=== PATIENT | female | born 1980 | race Caucasian/White ===

== ENCOUNTER 2025-02-13 19:41 | Emergency (ER) | payer MEDICAID, SELFPAY ==
[2025-02-13 19:41] VITALS: BMI 39.4
[2025-02-13 20:18] VITALS: BP 130/88; PULSE 81; RESP 19; TEMP 37.2; O2SAT 98
--- NOTE | 2025-02-13 22:19 | EDRME_ITS ---
Rapid Medical Screening Exam RME Arrival date/time: 02/13/25 19:41 Chief Complaint: Wound/Laceration Time Seen by Provider: 02/13/25 21:12 Vital signs: Vital Signs Temperature 98.9 F 02/13/25 20:18 Pulse Rate 81 02/13/25 20:18 Respiratory Rate 19 02/13/25 20:18 Blood Pressure 130/88 H 02/13/25 20:18 Pulse Oximetry (%) 98 02/13/25 20:18 Oxygen Delivery Method Room Air 02/13/25 20:18 Vital signs reviewed by provider: Yes RME Narrative: [id number] 44-year-old female presents to the ED with a complaint of right index finger laceration. 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 She reached onto the can lid to attempt to open the can the rest of the way and it caused a laceration to the right index finger. Her last tetanus was greater than 10 years ago. She denies any numbness or tingling distally. She denies any functional deficit.
[2025-02-13] MEDS: DIPHTH,PERTUSS(ACELL),TET VAC 0.5 ML SYR- ADULT IMi (22:47)
--- NOTE | 2025-02-13 23:31 | EDNOTE_ITS ---
ED Wound/Laceration-RME/HPI General Chief Complaint: Wound/Laceration Stated Complaint: CUT TO RIGHT INDEX FINGER Time Seen by Provider: 02/13/25 21:12 Arrival date/time: 02/13/25 19:41 RME / HPI RME / HPI narrative: [id number] 44-year-old female presents to the ED with a complaint of right index finger laceration. 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 She reached onto the can lid to attempt to open the can the rest of the way and it caused a laceration to the right index finger. Her last tetanus was greater than 10 years ago. She denies any numbness or tingling distally. She denies any functional deficit. Related Data Previous Rx's ?Medication ?Instructions ?Recorded tramadol 37.5 mg-acetaminophen 325 1 tab PO TID PRN pa in #15 tabs 09/21/ mg tablet (Ultracet) Allergies Allergy/AdvReac Type Severity Reaction Status Date / Time No Known Allergies Allergy Verified 02/13/25 19:41 ED Exam Narrative Physical exam: Right index finger with laceration noted to the distal phalanx. Does not include the nail or nailbed. CMS intact distally. No functional deficit noted. Course Course Course Narrative: Tdap updated. 1.5 cm laceration closed with number three 5-0 nylon simple interrupted sutures. With good wound edge approximation. Patient tolerated procedure well. Orders Category Date Time Status Set Up Suture Tray STAT Care 02/13/25 22:20 Active TDap [Obtain Tdap Consent] X1 Care 02/13/25 22:20 Active TET,DIP/PERT AC (Adult)-Tdap [Boostrix Adult (Tdap) Med 02/13/25 22:20 Discontinued Vacc] 0.5 ml IMI .ONCE ONE Vital Signs Vital signs: Vital Signs Temperature 98.9 F 02/13/25 20:18 Pulse Rate 81 02/13/25 20:18 Respiratory Rate 19 02/13/25 20:18 Blood Pressure 130/88 H 02/13/25 20:18 Pulse Oximetry (%) 98 02/13/25 20:18 Oxygen Delivery Method Room Air 02/13/25 20:18 Wound / Laceration Medications / Prescriptions Medication administrations:: Medication Administration History Discontinued Medications Diphtheria/Tetanus/Acell Pertussis (Diphth,Pertuss(Acell),Tet Vac 0.5 Ml Syr- Adult) 0.5 ml IMi .ONCE ONE Stop: 02/13/25 22:21 Last Admin: 02/13/25 22:47 Dose: 0.5 ml Documented By: ANITRA Discharge Plan Prescriptions/Referrals Prescriptions/Med Rec: No Action tramadol-acetaminophen [Ultracet] 37.5-325 mg tablet 1 tab PO TID PRN (Reason: pain) Qty: 15 0RF Referrals: Sherry Galindo NP [Primary Care Provider] - In 1 week Patient/Caregiver Discharge Instructions Print Language: Sierra Leonean
[2025-02-13 23:48] VITALS: BP 142/67; PULSE 78; RESP 19; TEMP 36.6; O2SAT 99
== END 2025-02-13 23:49 | disposition home or self-care (01) ==
PROVIDERS: Emergency Provider Emergency Medicine; PCP Nurse Practitioner Family
DX: S61.210A Laceration without foreign body of right index finger without damage to nail, initial encounter (principal); W45.8XXA Other foreign body or object entering through skin, initial encounter; Z23 Encounter for immunization
CPT/HCPCS: 12001; 90471; 90715; 99283

== ENCOUNTER 2025-02-21 09:43 | Emergency (ER) | payer MEDICAID, SELFPAY ==
[2025-02-21 09:59] VITALS: BP 153/96; PULSE 83; RESP 19; TEMP 36.7; O2SAT 98; BMI 39.4
--- NOTE | 2025-02-21 10:02 | XR_ITS ---
Examination: Abdomen sonogram, Limited Date and time of exam: 05/24/2025 1041 hours INDICATIONS: Right upper abdominal pain nausea vomiting beginning 5 hours ago Technique: Real-time coombs scale transabdominal sonographic images of the upper abdomen obtained. Findings: Normal gallbladder Normal common bile duct 0.4 cm Pancreatic head 1.6 cm Liver 18.2 cm fatty infiltration Normal hepatopedal portal venous flow Patent IVC IMPRESSION: Moderate hepatomegaly, fatty liver
--- NOTE | 2025-02-21 10:02 | PD.EDRME ---
Rapid Medical Screening Exam RME Arrival date/time: 02/21/25 09:43 44-year-old female with no known medical history presents to the emergency room with a chief complaint of 8 out of 10 epigastric pain that radiates to the right upper quadrant and vomiting x 1 day. I have greeted and performed a focused initial assessment of this patient. A comprehensive ED assessment and evaluation of the patient, analysis of all test results, and completion of the medical decision making process will be conducted by additional ED providers. Chief Complaint: Abdominal Pain Vital signs: Vital Signs Temperature 98.0 F 02/21/25 09:59 Pulse Rate 83 02/21/25 09:59 Respiratory Rate 19 02/21/25 09:59 Blood Pressure 153/96 H 02/21/25 09:59 Pulse Oximetry (%) 98 02/21/25 09:59 Oxygen Delivery Method Room Air 02/21/25 09:59 Vital signs reviewed by provider: Yes
[2025-02-21] MEDS: HYDROcodone/APAP 5/325 TABLET 1 TAB PO (11:10)
[2025-02-21] MEDS: ONDANSETRON ODT 4 MG TABRAP PO (11:10)
[2025-02-21] MEDS: MG HYD/AL HYD/SIME (Maalox Reg) SUSP 30 ML UDC PO (11:10)
[2025-02-21 11:36] LABS: Basophils % (Auto) 0 % (0-2.5); Eosinophils # (Auto) 0.3 Thou/mm3 (0.0-0.5); Eosinophils % (Auto) 4 % (0-10); Hematocrit 41.5 % (36.0-46.0); Hemoglobin 13.9 g/dL (12.0-16.0); Immature Granulocytes % (Auto) 0 % (0-0); Immature Granulocytes Auto 0.03 Thou/mm3 (0.00-0.00); Lymphocytes # (Auto) 1.5 Thou/mm3 (1.0-4.8); Lymphocytes % (Auto) 18 % (10-50); Mean Corpuscular HGB Conc 33.5 g/dl (31.0-37.0); Mean Corpuscular Hemoglobin 32.3 pg (25.0-35.0); Mean Corpuscular Volume 96 fL (80-100); Monocytes # (Auto) 0.5 Thou/mm3 (0.0-0.8); Monocytes % (Auto) 6 % (0-12); Neutrophils % (Auto) 72 % (37-80); Nucleated Red Blood Cell % 0 /100 WBC (0); Platelet Count 212 Thou/mm3 (140-440); RDW Standard Deviation 45.2 fL (36.4-46.3); Red Blood Count 4.31 Miln/mm3 (4.00-5.20); White Blood Count 8.3 Thou/mm3 (3.6-11.0)
[2025-02-21 11:37] LABS: Alanine Aminotransferase 69 U/L (10-49); Albumin, Serum 4.8 gm/dL (3.5-5.0); Albumin/Globulin Ratio 1.7 (1.2-2.2); Alkaline Phosphatase 81 U/L (46-116); Anion Gap 5 (7-16); Aspartate Amino Transferase 51 U/L (0-34); BUN/Creatinine Ratio 8 Ratio (12-20); Bilirubin,Total 0.5 mg/dL (0.3-1.2); Blood Urea Nitrogen 7 mg/dL (9-23); Calcium 9.6 mg/dL (8.3-10.6); Calcium (Corrected) 9.6 mg/dL (8.5-10.1); Carbon Dioxide 27.3 mMol/L (20.0-31.0); Chloride 107 mMol/L (98-107); Creatinine (Component) 0.9 mg/dL (0.6-1.3); Estimated Creatinine Clearance 95.8 mL/min (>60); Globulin 2.8 gm/dL (2.3-3.5); Glucose 122 mg/dL (74-106); Lipase 46 U/L (12-53); Osmolality,Calculated 276 (275-295); Sodium 139 mMol/L (136-145); Total Protein 7.6 gm/dL (5.7-8.2); eGFR > 60 See Note
[2025-02-21 11:44] LABS: Collection Type, Urine Clean Catch
[2025-02-21 12:43] LABS: HCG Qualitative,Urine Negative
[2025-02-21 12:51] LABS: Amorphous Crystals,Urine Present (Absent); Bacteria,Urine Rare; Bilirubin,Urine Negative (Negative); Blood,Urine 1+ (Negative); Calcium Oxalate Crystals,Urine 3+; Color,Urine Yellow (Lt Yel-Yel); Glucose, Urine Negative (Negative); Ketones,Urine Negative (Negative); Leukocyte Esterase,Urine Positive (Negative); Nitrite,Urine Negative (Negative); Protein,Urine 1+ (Neg - Trace); RBC,Urine 4 /hpf (0-3); Specific Gravity,Urine 1.031 (1.001-1.035); Squamous Epithelial Cell,Urine 7 /hpf (0-5); Urobilinogen,Urine Negative mg/dL (0.0-1.0); WBC,Urine 36 /hpf (0-5)
[2025-02-21 13:11] LABS: Clarity,Urine Turbid (Clear/Hazy)
--- NOTE | 2025-02-21 15:10 | XR_ITS ---
Examination: CT abdomen and pelvis without contrast. Coronal 3-D reconstructions. Sagittal 2-D reconstructions. Date and time of exam:February 21, 2025 1659 hours INDICATIONS: Abdominal pain with nausea today CTDI: vol (mGy): 14.9 DLP: (mGycm): 844 Technique: Axial images of the abdomen have been obtained, 3 mm slice thickness Intravenous contrast material has not been administered. Low dose protocols were performed. One or more of the following dose reduction techniques were used; automated exposure control, adjustment of the mA and/or KV according to patient size, use of iterative reconstruction technique. Findings: No gallstones Spleen not enlarged No pancreatic or adrenal mass 1 mm right renal calculus coronal image 102 Normal appendix No bowel obstruction No diverticulitis No pelvic mass Intact urinary bladder Advanced degenerative disc disease L5-S1 IMPRESSION: Normal appendix 1 mm right renal calculus, no hydronephrosis No bowel obstruction
--- NOTE | 2025-02-21 15:28 | PD.EDABDPN ---
ED Abdominal Pain RME/HPI General Chief Complaint: Abdominal Pain Stated complaint: SEVERE UPPER STOMACH PAIN & CHEST PAIN SINCE 5AM Arrival date/time: 02/21/25 09:43 Limitations: no limitations RME / HPI RME / HPI narrative: 02/21/25 09:43 44-year-old female with no known medical history presents to the emergency room with a chief complaint of 8 out of 10 epigastric pain that radiates to the right upper quadrant and vomiting x 1 day. I have greeted and performed a focused initial assessment of this patient. A comprehensive ED assessment and evaluation of the patient, analysis of all test results, and completion of the medical decision making process will be conducted by additional ED providers. DR. CARLOS MAIN ED EVALUATION: 44 year old female with no known past medical history presents to the Emergency Department with complaint of epigastric pain that radiates up. No other symptoms reported at this time. She states she smokes and drinks alcohol. Related Data Previous Rx's ?Medication ?Instructions ?Recorded tramadol 37.5 mg-acetaminophen 325 1 tab PO TID PRN pain #15 tabs 09/21/22 mg tablet (Ultracet) Allergies Allergy/AdvReac Type Severity Reaction Status Date / Time No Known Allergies Allergy Verified 02/21/25 09:46 Review of Systems Review of Systems Systems Reviewed: All systems reviewed, normal except as documented Narrative Review of Systems: GEN: No fever, no chills, no weight loss EYES: No discharge, no visual changes, no pain HEENT: No ear pain, no congestion, no sore throat PULM: No shortness of breath, no cough, no congestion CV: No chest pain, no dyspnea on exertion, no palpitations GI: No nausea, no vomiting, no diarrhea, + epigastric pain, no constipation : No frequency, no urgency and no dysuria MUSC/SKEL: No joint pain, no back pain SKIN: No rash PSYCH: No hallucinations, no depression HEME/LYMPH: No easy bleeding or bruising tendencies NEURO: No weakness, no headache Past Medical History Social History SMOKING STATUS: Former smoker SUBSTANCE USE: does not use ALCOHOL: Never ED Exam General Limitations: Present no limitations General appearance: Present alert and in no apparent distress Head Head exam: Present atraumatic, normocephalic and normal inspection Eye Eye exam: Present normal appearance, PERRL and EOMI ENT ENT exam: Present normal exam, normal oropharynx and mucous membranes moist Neck Neck exam: Present normal inspection, full ROM and trachea midline Chest Chest inspection: Present normal inspection and symmetric chest wall rise Respiratory Respiratory exam: Present normal lung sounds bilaterally Cardiovascular Cardiovascular exam: Present regular rate, normal rhythm and normal heart sounds Abdominal Exam Abdominal exam: Present soft and normal bowel sounds Extremities Exam Extremities exam: Present normal inspection and full ROM Back Exam Back exam: Present normal inspection and full ROM Neurological Exam Neurological exam: Present alert, oriented X3 and CN II-XII intact Psychiatric Psychiatric exam: Present normal affect and normal mood Skin Skin exam: Present warm, dry, intact and normal color Course Quality Measures none Orders Category Date Time Status CT abdomen pelvis wo con Stat Exams 02/21/25 15:10 Completed US gall bladder Stat Exams 02/21/25 10:02 Completed CBC Stat Lab 02/21/25 11:04 Completed CMP [Comprehensive Metabolic Panel] Stat Lab 02/21/25 11:04 Completed HCG Qualitative,Urine Stat Lab 02/21/25 11:00 Completed Lipase Stat Lab 02/21/25 11:04 Completed UA [Urinalysis] Stat Lab 02/21/25 11:00 Completed Urine Culture Stat Lab 02/21/25 11:00 Received HYDROcodone*/APAP 5/325 [[place] 5/325] Med 02/21/25 10:02 Discontinued 1 tab PO X1 ONE Ondansetron Odt [Zofran Odt] Med 02/21/25 10:02 Discontinued 4 mg PO X1 ONE mg Hyd/Al Hyd/Isaura Susp [Maalox Susp] Med 02/21/25 10:02 Discontinued 30 ml PO X1 ONE Vital Signs Vital signs: Vital Signs Temperature 98.0 F 02/21/25 09:59 Pulse Rate 83 02/21/25 09:59 Respiratory Rate 19 02/21/25 09:59 Blood Pressure 153/96 H 02/21/25 09:59 Pulse Oximetry (%) 98 02/21/25 09:59 Oxygen Delivery Method Room Air 02/21/25 09:59 Abdominal Pain MDM MDM Narrative MDM Narrative:: I, Mandy Duncan am scribing for and in the presence of Dr. Carlos. Patient will be discharged with acid reflux, she refused medications. Patient data External records reviewed:: [facility] previous records (Reviewed last ED visit dated 02/13/25 discharged with the following: Laceration) Clinical information provided by:: patient Social determinants that could affect healthcare access:: alcohol use (She states she smokes and drinks alcohol.) Patient has the following chronic illnesses:: No known PMHx, surgeries, daily medications, or known allergies. How is presenting disease/condition affected by chronic disease/condition?: no chronic disease Evaluation data The following diagnostics were reviewed and interpreted by me:: lab results and radiology exam(s) Lab and/or radiology exams considered but not ordered:: none Interpretation Summary: Procedure(s): US gall bladder Accession Number(s): [id number] cc: Los Oconnell; Irineo oJnes MD; Yonathan Paulino MD~ Examination: Abdomen sonogram, Limited Date and time of exam: 05/24/2025 1041 hours INDICATIONS: Right upper abdominal pain nausea vomiting beginning 5 hours ago Technique: Real-time coombs scale transabdominal sonographic images of the upper abdomen obtained. Findings: Normal gallbladder Normal common bile duct 0.4 cm Pancreatic head 1.6 cm Liver 18.2 cm fatty infiltration Normal hepatopedal portal venous flow Patent IVC IMPRESSION: Moderate hepatomegaly, fatty liver Dictated By: Irineo Jones MD Procedure(s): CT abdomen pelvis wo con Accession Number(s): [id number] cc: Herbert Carlos MD; Irineo Jones MD; Yonathan Paulino MD~ Examination: CT abdomen and pelvis without contrast. Coronal 3-D reconstructions. Sagittal 2-D reconstructions. Date and time of exam:February 21, 2025 1659 hours INDICATIONS: Abdominal pain with nausea today CTDI: vol (mGy): 14.9 DLP: (mGycm): 844 Technique: Axial images of the abdomen have been obtained, 3 mm slice thickness Intravenous contrast material has not been administered. Low dose protocols were performed. One or more of the following dose reduction techniques were used; automated exposure control, adjustment of the mA and/or KV according to patient size, use of iterative reconstruction technique. Findings: No gallstones Spleen not enlarged No pancreatic or adrenal mass 1 mm right renal calculus coronal image 102 Normal appendix No bowel obstruction No diverticulitis No pelvic mass Intact urinary bladder Advanced degenerative disc disease L5-S1 IMPRESSION: Normal appendix 1 mm right renal calculus, no hydronephrosis No bowel obstruction Dictated By: Irineo Jones MD Medications / Prescriptions Medications or Prescriptions considered but not ordered:: none Medication administrations:: Medication Administration History Discontinued Medications Hydrocodone Bitart/Acetaminophen (Hydrocodone/Apap 5/325 Tablet) 1 tab PO X1 ONE Stop: 02/21/25 10:03 Last Admin: 02/21/25 11:10 Dose: 1 tab Documented By: LANDON Al Hydrox/Mg Hydrox/Simethicone (Mg Hyd/Al Hyd/Isaura (Maalox Reg) Susp 30 Ml Udc) 30 ml PO X1 ONE Stop: 02/21/25 10:03 Last Admin: 02/21/25 11:10 Dose: 30 ml Documented By: LANDON Ondansetron HCl (Ondansetron Odt 4 Mg Tabrap) 4 mg PO X1 ONE; Protocol Stop: 02/21/25 10:03 Last Admin: 02/21/25 11:10 Dose: 4 mg Documented By: LANDON see above Consultations Consultation(s) initiated? (list below): No Diagnosis Differential diagnosis abdominal pain: abdominal pain, calculus of kidney and other (GERD) Most likely diagnosis given after review of the tests above:: Acid reflux Admission Indicated Admission indicated?: not indicated Admission Request Was there a request for admission?: No Disposition Plan Disposition Plan: Discharge Discharge Attestation Discharge Attestation: The patient and all family members were given an opportunity to ask questions and understood the discharge instructions. Discharge instructions specifically effects, indications for sooner follow up or return to the emergency department, and the expected course of current diagnosis. Patient condition: Stable Discharge Plan Plan Patient Disposition: HOME (Self Care) Patient condition on transfer: Stable Prescriptions/Referrals Prescriptions/Med Rec: No Action tramadol-acetaminophen [Ultracet] 37.5-325 mg tablet 1 tab PO TID PRN (Reason: pain) Qty: 15 0RF Referrals: Yonathan Paulino MD [Primary Care Provider] - In 1 week Problem List Clinical Impression: Acid reflux Patient/Caregiver Discharge Instructions Education Materials: Tips to Control Acid Reflux, ED GERD (Adult) Additional Instructions: Please follow-up with your primary care physician within a week, consider GI specialist consult. Return to the Emergency Department as needed. Print Language: Armenian Stand Alone Forms: Ashleigh Award Info., Patient Portal Info Letter
[2025-02-21 16:27] VITALS: BP 161/99; PULSE 68; RESP 14
--- NOTE | 2025-02-21 17:38 | PC.NURSE ---
Patient not found in room. All cardiac leads and monitor cables found lying on floor. EKG pads found in bed. and pt belonging bag empty. Pt believed to have left prior to discharge.
== END 2025-02-21 17:34 | disposition home or self-care (01) ==
PROVIDERS: Nurse Practitioner Family; Emergency Provider Family Medicine; PCP Family Medicine
DX: K21.9 Gastro-esophageal reflux disease without esophagitis (principal); K76.0 Fatty (change of) liver, not elsewhere classified; N20.0 Calculus of kidney
CPT/HCPCS: 36415; 74176; 76705; 80053; 81001; 81025; 83690; 85025; 87086; 99284; Q0162; A9270